=== PATIENT | female | born 1985 | race Caucasian/White ===

== ENCOUNTER → 2016-03-08 | Outpatient (CLI) | payer OTHER ==
--- NOTE | 2016-03-08 11:08 | REP ---
Right hand series: Four views. History: Pain. Findings: Four views right hand demonstrate overall normal mineralization. Bones joints and soft tissues are radiographically unremarkable. No change from comparison study May 12, 2015. Impression: Negative right hand views. Signed by Laci Dia MD 03/08/2016 02:39 P
== END ==
LOC: M WUC 09:57
PROVIDERS: ATTEND Physician Assistant
DX: M25.541 Pain in joints of right hand (principal)

== ENCOUNTER 2016-07-27 17:14 | Emergency (ER) | payer OTHER ==
[~2016-07-27] VITALS: Ht 149.9 cm; Wt 46.7 kg
[2016-07-27 17:14] VITALS: BP 127/83
== END 2016-07-27 17:29 | disposition left against medical advice (07) ==
LOC: M ED 17:14
DX: Z53.29 Procedure and treatment not carried out because of patient's decision for other reasons (principal)

== ENCOUNTER 2016-11-09 21:10 | Emergency (ER) | payer OTHER ==
[~2016-11-09] VITALS: Ht 149.9 cm; Wt 40.9 kg
[2016-11-09 21:24] VITALS: BP 114/62
== END 2016-11-09 22:45 | disposition left against medical advice (07) ==
LOC: M ED 21:10
DX: R10.84 Generalized abdominal pain (principal); Z72.0 Tobacco use

== ENCOUNTER 2016-11-11 09:53 | Emergency (ER) | payer OTHER ==
[~2016-11-11] VITALS: Ht 149.9 cm; Wt 41.9 kg
[2016-11-11] MEDS ORDERED: METH40TA PO (10:06)
[2016-11-11] MEDS ORDERED: ONDANSETRON 4MG/2ML VIAL (J2405) IV ONE (11:15)
[2016-11-11] MEDS ORDERED: NS 1,000 ML IV ONE (11:15)
[2016-11-11] MEDS ORDERED: KETOROLAC 30 MG/ML VIAL (J1885) IV ONE (11:15)
[2016-11-11 11:54] LABS: CALCIUM OXALATE CRYSTALS SMALL
--- NOTE | 2016-11-11 11:54 | REP ---
Acute abdominal series three views including PA chest and supine upright abdomen: There are no comparison studies. PA chest: Lung de leon are clear. Cardiac size is normal. The lilly, mediastinum, and bony thorax unremarkable. There is no free subdiaphragmatic air. Impression: Negative PA chest. Abdomen, supine upright views: There is a large volume of fecal residue throughout the colon. There is small bowel distension with air-fluid levels compatible with ileus versus obstruction. No calcifications or foreign bodies. Impression: Ileus versus obstruction. Large volume of fecal residue throughout the colon Signed by Levar Leyva MD 11/11/2016 11:45 A
[2016-11-11 11:57] LABS: MEAN CORPUSCULAR HEMOGLOBIN 30.6 pg (27.0-33.0); MEAN CORPUSCULAR HGB CONC 35.3 g/dl (32.0-36.5); MEAN CORPUSCULAR VOLUME 86.7 fl (80.0-96.0); PLATELET COUNT, AUTOMATED 271 10^3/uL (150-450); RED CELL DISTRIBUTION WIDTH 13.1 % (11.5-14.5)
[2016-11-11 12:03] LABS: ADD MANUAL DIFFER YES; DIFF SLIDE NUMBER 188
[2016-11-11 12:14] LABS: ALBUMIN 2.6 GM/DL (3.2-5.2); ALBUMIN/GLOBULIN RATIO 0.67 (1.00-1.93); ALKALINE PHOSPHATASE 50 U/L (45-117); ALT/SGPT 21 U/L (12-78); AMYLASE 23 U/L (25-115); ANION GAP 10 MEQ/L (8-16); AST/SGOT 21 U/L (15-37); BILIRUBIN,DIRECT < 0.1 MG/DL (0.0-0.2); BILIRUBIN,TOTAL 0.3 MG/DL (0.2-1.0); BLOOD UREA NITROGEN 60 MG/DL (7-18); CALCIUM LEVEL 8.7 MG/DL (8.5-10.1); CARBON DIOXIDE LEVEL 24 MEQ/L (21-32); CHLORIDE LEVEL 96 MEQ/L (98-107); CREATININE FOR GFR 1.03 MG/DL (0.55-1.02); GLOMERULAR FILTRATION RATE > 60.0 (>60); GLUCOSE, FASTING 110 MG/DL (70-105); POTASSIUM SERUM 4.4 MEQ/L (3.5-5.1); SODIUM LEVEL 130 MEQ/L (136-145); TOTAL PROTEIN 6.5 GM/DL (6.4-8.2)
[2016-11-11 12:39] LABS: BANDS 1 % (< 11)
[2016-11-11 12:40] LABS: ANISOCYTOSIS 1+
[2016-11-11] MEDS ORDERED: ISOVUE-370 76% 100ML VIAL (Q9967) As Ordered ONE (13:06)
--- NOTE | 2016-11-11 13:57 | REP ---
CT ABDOMEN AND PELVIS WITH IV CONTRAST: TECHNIQUE: Axial contrast enhanced images from the lung bases to the pubic symphysis using 100 mL Isovue 370 intravenous contrast material with multiplanar reformations. Visualized lung bases are clear. The liver, spleen, adrenals, pancreas and kidneys are essentially normal in appearance. There is no adenopathy. There is no free air. Intussusception is noted of a jejunal small bowel loop. This causes high grade obstruction of the jejunum. More distal ileum is normal in caliber. Fecal material is seen throughout the colon. There is mild diffuse free fluid in the abdomen and pelvis. The urinary bladder is mildly distended and grossly unremarkable. No gross pelvic mass is seen. IMPRESSION: Intussusception of a segment of jejunum causing high-grade small bowel obstruction. Mild diffuse free fluid in the abdomen and pelvis. Signed by Levar Sanchez MD 11/12/2016 05:13 P
[2016-11-11 15:04] VITALS: BP 142/80
== END 2016-11-11 15:06 | disposition short-term general hospital (02) ==
LOC: M ED 09:53
DX: K56.60 Unspecified intestinal obstruction (principal); F19.21 Other psychoactive substance dependence, in remission; Z98.84 Bariatric surgery status; F17.210 Nicotine dependence, cigarettes, uncomplicated
CPT/HCPCS: 36415; 74022; 74177; 80048; 80076; 81001; 81025; 82150; 83690; 85025; 96374; 96375; 99284; J1885; J2405; Q9967

== ENCOUNTER 2016-11-20 21:00 | Emergency (ER) | payer OTHER ==
[~2016-11-20] VITALS: Ht 149.9 cm; Wt 40.5 kg
[~2016-11-20 21:00] MED LIST: METH40TA PO
[2016-11-20 21:02] VITALS: BP 149/99
== END 2016-11-20 23:00 | disposition left against medical advice (07) ==
LOC: M ED 21:00
DX: R68.89 Other general symptoms and signs (principal); Z53.29 Procedure and treatment not carried out because of patient's decision for other reasons

== ENCOUNTER → 2017-01-04 | Outpatient (CLI) | payer OTHER ==
[2017-01-04 17:54] LABS: MEAN CORPUSCULAR HEMOGLOBIN 24.6 pg (27.0-33.0); MEAN CORPUSCULAR HGB CONC 30.1 g/dl (32.0-36.5); MEAN CORPUSCULAR VOLUME 81.5 fl (80.0-96.0); PLATELET COUNT, AUTOMATED 464 10^3/uL (150-450); RED CELL DISTRIBUTION WIDTH 15.9 % (11.5-14.5); WHITE BLOOD COUNT 9.3 10^3/uL (4.0-10.0)
[2017-01-04 18:06] LABS: ALBUMIN 2.9 GM/DL (3.2-5.2); ALBUMIN/GLOBULIN RATIO 0.76 (1.00-1.93); ALKALINE PHOSPHATASE 63 U/L (45-117); ALT/SGPT 25 U/L (12-78); ANION GAP 7 MEQ/L (8-16); AST/SGOT 14 U/L (7-37); BILIRUBIN,TOTAL 0.1 MG/DL (0.2-1.0); BLOOD UREA NITROGEN 12 MG/DL (7-18); CALCIUM LEVEL 8.6 MG/DL (8.5-10.1); CARBON DIOXIDE LEVEL 28 MEQ/L (21-32); CHLORIDE LEVEL 103 MEQ/L (98-107); CHOLESTEROL LEVEL 115 MG/DL (<200); CREATININE FOR GFR 0.57 MG/DL (0.55-1.02); FERRITIN 10 NG/ML (8-252); GLOMERULAR FILTRATION RATE > 60.0 (>60); GLUCOSE, FASTING 99 MG/DL (70-105); POTASSIUM SERUM 4.2 MEQ/L (3.5-5.1); SODIUM LEVEL 138 MEQ/L (136-145); TOTAL PROTEIN 6.7 GM/DL (6.4-8.2); TRIGLYCERIDES LEVEL 148 MG/DL (<150)
[2017-01-06 14:36] LABS: FOLATE 9.1 NG/ML (>5.4); VITAMIN B12 LEVEL 325 PG/ML (247-911)
== END ==
LOC: M WUC 12:14
DX: E44.0 Moderate protein-calorie malnutrition (principal); K56.1 Intussusception; D53.8 Other specified nutritional anemias; Z53.20 Procedure and treatment not carried out because of patient's decision for unspecified reasons

== ENCOUNTER → 2017-07-08 | Outpatient (CLI) | payer MEDICAID | LOC: M OUTALCOH 07:46 | DX: F11.20 Opioid dependence, uncomplicated (principal) ==

== ENCOUNTER 2017-07-30 13:59 | Outpatient (RCR) | payer MEDICAID | END 2017-08-16 | LOC: M OUTALCOH 13:59 | DX: F11.20 Opioid dependence, uncomplicated (principal); F17.200 Nicotine dependence, unspecified, uncomplicated ==

== ENCOUNTER 2017-11-04 15:13 | Emergency (ER) | payer OTHER, MEDICAID ==
[2017-11-04 17:21] LABS: HEMATOCRIT 33.2 % (36.0-47.0); HEMOGLOBIN 10.3 g/dl (12.0-15.5); MEAN CORPUSCULAR HEMOGLOBIN 24.2 pg (27.0-33.0); MEAN CORPUSCULAR VOLUME 77.9 fl (80.0-96.0); PLATELET COUNT, AUTOMATED 346 10^3/uL (150-450); RED BLOOD COUNT 4.26 10^6/uL (4.00-5.40); WHITE BLOOD COUNT 8.1 10^3/uL (4.0-10.0)
[2017-11-04 17:26] LABS: ADD MANUAL DIFFER YES; DIFF SLIDE NUMBER 357; POSITIVE MORPH POS FLAG
[2017-11-04 17:42] LABS: ALBUMIN 2.6 GM/DL (3.2-5.2); ALKALINE PHOSPHATASE 62 U/L (45-117); ALT/SGPT 25 U/L (12-78); ANION GAP 10 MEQ/L (8-16); AST/SGOT 18 U/L (7-37); BILIRUBIN,DIRECT < 0.1 MG/DL (0.0-0.2); BILIRUBIN,TOTAL 0.2 MG/DL (0.2-1.0); BLOOD UREA NITROGEN 11 MG/DL (7-18); CALCIUM LEVEL 8.6 MG/DL (8.5-10.1); CARBON DIOXIDE LEVEL 21 MEQ/L (21-32); CHLORIDE LEVEL 110 MEQ/L (98-107); CREATININE FOR GFR 0.34 MG/DL (0.55-1.30); GLOMERULAR FILTRATION RATE > 60.0 (>60); GLUCOSE, FASTING 57 MG/DL (70-100); LIPASE 137 U/L (73-393); POTASSIUM SERUM 4.1 MEQ/L (3.5-5.1); SODIUM LEVEL 141 MEQ/L (136-145); TOTAL PROTEIN 6.9 GM/DL (6.4-8.2)
[2017-11-04] MEDS ORDERED: ISOVUE-370 76% 100ML VIAL (Q9967) As Ordered (18:03)
[2017-11-04 18:12] LABS: LYMPHOCYTES 20 % (16-52); MONOCYTES 6 % (0-8); NEUTROPHILS 74 % (35-75)
[2017-11-04 18:13] LABS: PLATELET ESTIMATE NORMAL (NORMAL)
[2017-11-04 18:14] LABS: MICROCYTOSIS 1+; SCHISTOCYTES 1+; TARGET CELLS 1+
== END 2017-11-04 20:59 | disposition home or self-care (01) ==
LOC: M ED 15:13
DX: R10.9 Unspecified abdominal pain (principal); K21.9 Gastro-esophageal reflux disease without esophagitis
CPT/HCPCS: Q9967

== ENCOUNTER → 2017-11-13 | Outpatient (REF) | payer OTHER | LOC: M LAB REF 13:35 | DX: L02.91 Cutaneous abscess, unspecified (principal) ==

== ENCOUNTER → 2018-02-03 | Outpatient (CLI) | payer MEDICAID | LOC: M OUTALCOH 08:46 | PROVIDERS: ATTEND Psychiatry & Neurology Psychiatry | DX: Z13.9 Encounter for screening, unspecified (principal); F11.20 Opioid dependence, uncomplicated ==

== ENCOUNTER 2018-02-13 14:06 | Outpatient (RCR) | payer MEDICAID | END 2018-02-16 | LOC: M OUTALCOH 14:06 | PROVIDERS: ATTEND Psychiatry & Neurology Psychiatry | DX: F11.20 Opioid dependence, uncomplicated (principal); F17.200 Nicotine dependence, unspecified, uncomplicated ==

== ENCOUNTER → 2018-03-06 | Outpatient (REF) | payer OTHER ==
[2018-03-06 09:57] LABS: HEMATOCRIT 36.1 % (36.0-47.0); HEMOGLOBIN 11.7 g/dl (12.0-15.5); MEAN CORPUSCULAR HEMOGLOBIN 27.1 pg (27.0-33.0); MEAN CORPUSCULAR HGB CONC 32.4 g/dl (32.0-36.5); MEAN CORPUSCULAR VOLUME 83.6 fl (80.0-96.0); PLATELET COUNT, AUTOMATED 270 10^3/uL (150-450); RED BLOOD COUNT 4.32 10^6/uL (4.00-5.40); WHITE BLOOD COUNT 7.4 10^3/uL (4.0-10.0)
[2018-03-06 10:04] LABS: CHOLESTEROL LEVEL 125 MG/DL (<200); CHOLESTEROL RISK RATIO 2.906 (<5); HDL CHOLESTEROL 43 MG/DL (>40); LDL CHOLESTEROL 64 MG/DL (<100); NON-HDL-C 82 MG/DL; TRIGLYCERIDES LEVEL 91 MG/DL (<150)
[2018-03-06 10:12] LABS: TOTAL 25(OH) VITAMIN D 20.7 NG/ML (30.0-100.0)
[2018-03-06 10:13] LABS: VITAMIN B12 LEVEL 280 PG/ML (247-911)
[2018-03-06 10:25] LABS: HEPATITIS B SURFACE ANTIGEN NEGATIVE (NEGATIVE)
[2018-03-06 10:51] LABS: HEPATITIS B CORE ANTIBODY IGM NEGATIVE (NEGATIVE)
[2018-03-06 10:54] LABS: HEPATITIS A ANTIBODY IGM NEGATIVE (NEGATIVE)
[2018-03-06 11:05] LABS: HEPATITIS C VIRUS ABY INDEX > 11.0 INDEX (<0.8)
[2018-03-06 12:12] LABS: HIV 1&2 SCREEN CENTAUR NEGATIVE (NEGATIVE)
== END ==
LOC: M SFHCPLAZ 08:01
PROVIDERS: ATTEND Nurse Practitioner Family
DX: Z86.59 Personal history of other mental and behavioral disorders (principal); Z00.00 Encounter for general adult medical examination without abnormal findings; E55.9 Vitamin D deficiency, unspecified; F41.1 Generalized anxiety disorder; Z13.220 Encounter for screening for lipoid disorders

== ENCOUNTER 2018-03-18 08:45 | Outpatient (RCR) | payer MEDICAID | END 2018-03-19 | LOC: M OUTALCOH 08:45 | PROVIDERS: ATTEND Psychiatry & Neurology Psychiatry | DX: F11.20 Opioid dependence, uncomplicated (principal); F17.200 Nicotine dependence, unspecified, uncomplicated ==

== ENCOUNTER 2018-04-14 10:00 | Outpatient (RCR) | payer MEDICAID | END 2018-04-16 | LOC: M OUTALCOH 10:00 | PROVIDERS: ATTEND Psychiatry & Neurology Psychiatry | DX: F11.20 Opioid dependence, uncomplicated (principal); F17.200 Nicotine dependence, unspecified, uncomplicated ==

== ENCOUNTER 2018-05-12 10:00 | Outpatient (RCR) | payer MEDICAID | END 2018-05-17 | LOC: M OUTALCOH 10:00 | PROVIDERS: ATTEND Psychiatry & Neurology Psychiatry | DX: F11.20 Opioid dependence, uncomplicated (principal); F17.200 Nicotine dependence, unspecified, uncomplicated ==

== ENCOUNTER 2018-06-15 16:00 | Outpatient (RCR) | payer MEDICAID | END 2018-06-16 | LOC: M OUTALCOH 16:00 | PROVIDERS: ATTEND Psychiatry & Neurology Psychiatry | DX: F11.20 Opioid dependence, uncomplicated (principal); F17.200 Nicotine dependence, unspecified, uncomplicated ==

== ENCOUNTER → 2019-03-23 | Outpatient (CLI) | payer OTHER ==
[2019-03-23 13:07] LABS: BASO % 0.5 % (0.0-1.0); EOS # 0.1 10^3/uL (0.0-0.5); EOS % 2.2 % (0.0-3.0); HEMATOCRIT 37.4 % (36.0-47.0); HEMOGLOBIN 11.4 g/dl (12.0-15.5); LYMPH # 2.5 10^3/uL (1.5-5.0); MEAN CORPUSCULAR HEMOGLOBIN 26.3 pg (27.0-33.0); MEAN CORPUSCULAR HGB CONC 30.5 g/dl (32.0-36.5); MEAN CORPUSCULAR VOLUME 86.2 fl (80.0-96.0); MONO # 0.6 10^3/uL (0.0-0.8); MONO % 8.7 % (0.0-5.0); NEUTROPHILS # 3.1 10^3/uL (1.5-8.5); NEUTROPHILS % 49.4 % (36.0-66.0); PLATELET COUNT, AUTOMATED 258 10^3/uL (150-450); RED BLOOD COUNT 4.34 10^6/uL (4.00-5.40); WHITE BLOOD COUNT 6.3 10^3/uL (4.0-10.0)
[2019-03-23 13:08] LABS: ALBUMIN 3.9 GM/DL (3.2-5.2); ALT/SGPT 19 U/L (12-78); BILIRUBIN,TOTAL 0.3 MG/DL (0.2-1.0); BLOOD UREA NITROGEN 7 MG/DL (7-18); CARBON DIOXIDE LEVEL 27 MEQ/L (21-32); CHLORIDE LEVEL 107 MEQ/L (98-107); CREATININE FOR GFR 0.56 MG/DL (0.55-1.30); GLOMERULAR FILTRATION RATE > 60.0 (>60); GLUCOSE, FASTING 75 MG/DL (70-100); MAGNESIUM LEVEL 2.1 MG/DL (1.8-2.4); POTASSIUM SERUM 4.3 MEQ/L (3.5-5.1); SODIUM LEVEL 139 MEQ/L (136-145)
[2019-03-23 13:16] LABS: FOLATE > 24.0 NG/ML; VITAMIN B12 LEVEL 572 PG/ML
[2019-03-24 12:56] LABS: HEPATITIS C VIRUS ABY INDEX > 11.0 INDEX (<0.8)
== END ==
LOC: M WUC 08:40
PROVIDERS: ATTEND Physician Assistant
DX: Z86.19 Personal history of other infectious and parasitic diseases (principal); E55.9 Vitamin D deficiency, unspecified; Z98.84 Bariatric surgery status

== ENCOUNTER → 2020-04-06 | Outpatient (REF) | payer OTHER | LOC: M SFHCPLAZ 09:24 | PROVIDERS: ATTEND Physician Assistant | DX: E55.9 Vitamin D deficiency, unspecified (principal); E53.8 Deficiency of other specified B group vitamins; Z98.84 Bariatric surgery status ==

== ENCOUNTER → 2020-04-12 | Outpatient (CLI) | payer OTHER ==
[2020-04-12 13:27] LABS: HEMOGLOBIN 10.2 g/dl (12.0-15.5); MEAN CORPUSCULAR HEMOGLOBIN 24.2 pg (27.0-33.0); MEAN CORPUSCULAR HGB CONC 30.9 g/dl (32.0-36.5); MEAN CORPUSCULAR VOLUME 78.4 fl (80.0-96.0); PLATELET COUNT, AUTOMATED 236 10^3/uL (150-450); RED BLOOD COUNT 4.21 10^6/uL (4.00-5.40); WHITE BLOOD COUNT 5.4 10^3/uL (4.0-10.0)
[2020-04-12 13:42] LABS: ALBUMIN 3.4 GM/DL (3.2-5.2); ALT/SGPT 19 U/L (12-78); BILIRUBIN,TOTAL 0.2 MG/DL (0.2-1.0); BLOOD UREA NITROGEN 7 MG/DL (7-18); CALCIUM LEVEL 8.7 MG/DL (8.5-10.1); CARBON DIOXIDE LEVEL 25 MEQ/L (21-32); CHLORIDE LEVEL 105 MEQ/L (98-107); CREATININE FOR GFR 0.54 MG/DL (0.55-1.30); GLOMERULAR FILTRATION RATE > 60.0 (>60); GLUCOSE, FASTING 104 MG/DL (70-100); IRON (FE) 50 UG/DL (50-170); POTASSIUM SERUM 4.3 MEQ/L (3.5-5.1); SODIUM LEVEL 137 MEQ/L (136-145); TOTAL PROTEIN 6.8 GM/DL (6.4-8.2)
[2020-04-12 13:50] LABS: TOTAL 25(OH) VITAMIN D 16.6 NG/ML (30.0-100.0); VITAMIN B12 LEVEL 282 PG/ML
[2020-04-12 14:13] LABS: FOLATE 17.5 NG/ML
== END ==
LOC: M LAB 11:43
PROVIDERS: ATTEND Physician Assistant
DX: Z98.84 Bariatric surgery status (principal); E55.9 Vitamin D deficiency, unspecified; E53.8 Deficiency of other specified B group vitamins

== ENCOUNTER → 2020-10-09 | Outpatient (CLI) | payer OTHER ==
[2020-10-09 15:26] LABS: HEMATOCRIT 35.7 % (36.0-47.0); HEMOGLOBIN 11.5 g/dl (12.0-15.5); MEAN CORPUSCULAR HEMOGLOBIN 25.9 pg (27.0-33.0); MEAN CORPUSCULAR HGB CONC 32.2 g/dl (32.0-36.5); MEAN CORPUSCULAR VOLUME 80.4 fl (80.0-96.0); PLATELET COUNT, AUTOMATED 295 10^3/uL (150-450); RED BLOOD COUNT 4.44 10^6/uL (4.00-5.40); WHITE BLOOD COUNT 4.7 10^3/uL (4.0-10.0)
[2020-10-09 15:57] LABS: BLOOD UREA NITROGEN 4 MG/DL (7-18); CARBON DIOXIDE LEVEL 25 MEQ/L (21-32); CHLORIDE LEVEL 107 MEQ/L (98-107); CREATININE FOR GFR 0.56 MG/DL (0.55-1.30); GLOMERULAR FILTRATION RATE > 60.0 (>60); GLUCOSE, FASTING 63 MG/DL (70-100); IRON (FE) 51 UG/DL (50-170); POTASSIUM SERUM 4.7 MEQ/L (3.5-5.1); SODIUM LEVEL 136 MEQ/L (136-145)
[2020-10-09 16:08] LABS: TOTAL 25(OH) VITAMIN D 20.4 NG/ML (30.0-100.0); VITAMIN B12 LEVEL > 2000 PG/ML
[2020-10-09 16:10] LABS: FOLATE 15.2 NG/ML
== END ==
LOC: M LAB 14:06
PROVIDERS: ATTEND Physician Assistant
DX: E55.9 Vitamin D deficiency, unspecified (principal); D50.8 Other iron deficiency anemias; E53.8 Deficiency of other specified B group vitamins

== ENCOUNTER → 2021-02-13 | Outpatient (REF) | payer OTHER | LOC: M LAB REF 16:16 | PROVIDERS: ATTEND Obstetrics & Gynecology | DX: O36.80X0 Pregnancy with inconclusive fetal viability, not applicable or unspecified (principal); Z32.01 Encounter for pregnancy test, result positive; Z3A.00 Weeks of gestation of pregnancy not specified ==

== ENCOUNTER → 2021-02-19 | Outpatient (CLI) | payer OTHER ==
[2021-02-19 14:10] LABS: HEMATOCRIT 38.9 % (36.0-47.0); MEAN CORPUSCULAR HEMOGLOBIN 30.7 pg (27.0-33.0); MEAN CORPUSCULAR HGB CONC 33.4 g/dl (32.0-36.5); PLATELET COUNT, AUTOMATED 249 10^3/uL (150-450); RED BLOOD COUNT 4.23 10^6/uL (4.00-5.40); WHITE BLOOD COUNT 7.3 10^3/uL (4.0-10.0)
[2021-02-19 15:32] LABS: HCG, SERUM QUANTITATIVE 37805 MIU/ML; HEPATITIS B SURFACE ANTIGEN NEGATIVE (NEGATIVE); HEPATITIS C VIRUS ABY INDEX > 11.0 INDEX (<0.8); HIV 1&2 SCREEN CENTAUR NEGATIVE (NEGATIVE)
== END ==
LOC: M LAB 12:30
PROVIDERS: ATTEND Obstetrics & Gynecology
DX: Z32.01 Encounter for pregnancy test, result positive (principal); Z3A.00 Weeks of gestation of pregnancy not specified

== ENCOUNTER → 2021-05-17 | Outpatient (CLI) | payer OTHER | LOC: M WHC 14:12 | PROVIDERS: ATTEND Obstetrics & Gynecology | DX: O34.211 Maternal care for low transverse scar from previous cesarean delivery (principal); O32.1XX0 Maternal care for breech presentation, not applicable or unspecified; Z3A.19 19 weeks gestation of pregnancy ==

== ENCOUNTER → 2021-07-04 | Outpatient (CLI) | payer OTHER | LOC: M WHC 13:14 | PROVIDERS: ATTEND Obstetrics & Gynecology | DX: Z36.2 Encounter for other antenatal screening follow-up (principal); Z3A.25 25 weeks gestation of pregnancy ==

== ENCOUNTER → 2021-08-10 | Outpatient (CLI) | payer OTHER | LOC: M WHC 13:45 | PROVIDERS: ATTEND Specialist | DX: Z34.82 Encounter for supervision of other normal pregnancy, second trimester (principal); Z36.2 Encounter for other antenatal screening follow-up; Z3A.29 29 weeks gestation of pregnancy ==

== ENCOUNTER 2021-09-02 07:34 | Inpatient (IN) | payer OTHER ==
[2021-09-02] VITALS (21 sets, daily range): BP systolic 122–170; BP diastolic 71–101
[~2021-09-02] VITALS: Ht 149.9 cm; Wt 47.4 kg
[2021-09-02] MEDS ORDERED: AZITHROMYCIN INJ 500 MG, VIAL MATE ADAPTER 1 EACH in NS 250 ML IV ONE (09:15)
[2021-09-02] MEDS ORDERED: OXYTOCIN DRIP 30 UNITS in IV 1 EA IV PRN ×4 (09:15)
[2021-09-02] MEDS ORDERED: ceFAZolin SOD 2 GM in IV 1 EA IV ONE (09:15)
[2021-09-02] MEDS ORDERED: BICITRA 30ML SOLN UDC PO ONE ×2 (09:15→13:35)
[2021-09-02] MEDS ORDERED: TRANEXAMIC ACID INJection 1,000 MG in NS 100 ML IV PRN (09:15)
[2021-09-02] MEDS ORDERED: METHYLERGONOVINE MALEATE 0.2 MG/ML VIAL (J2210) IM PRN (09:15)
[2021-09-02] MEDS ORDERED: CARBOPROST TROMETHAMINE 250 MCG/ML AMP IM PRN (09:15)
[2021-09-02 12:37] LABS: HEMATOCRIT 32.8 % (36.0-47.0); MEAN CORPUSCULAR HEMOGLOBIN 30.1 pg (27.0-33.0); MEAN CORPUSCULAR HGB CONC 33.5 g/dl (32.0-36.5); MEAN CORPUSCULAR VOLUME 89.9 fl (80.0-96.0); PLATELET COUNT, AUTOMATED 249 10^3/uL (150-450); RED BLOOD COUNT 3.65 10^6/uL (4.00-5.40); WHITE BLOOD COUNT 14.5 10^3/uL (4.0-10.0)
[2021-09-02] MEDS ORDERED: LR 1,000 ML IV ONE (12:40)
[2021-09-02] MEDS ORDERED: OXYTOCIN INJ 10 UNITS/ML VIAL (J2590) As Ordered ONE (12:41)
[2021-09-02] MEDS ORDERED: MORPHINE PRES-FREE INJ 10 MG/10 ML VIAL As Ordered ONE (12:45)
[2021-09-02] MEDS ORDERED: SODIUM CHLORIDE 0.9% INJ 10 ML SYR IV PRN ×2 (13:00→17:40)
[2021-09-02 13:02] LABS: ALBUMIN 2.4 GM/DL (3.2-5.2); ALT/SGPT 23 U/L (12-78); BILIRUBIN,TOTAL 0.3 MG/DL (0.2-1.0); BLOOD UREA NITROGEN 10 MG/DL (7-18); CALCIUM LEVEL 8.3 MG/DL (8.5-10.1); CARBON DIOXIDE LEVEL 22 MEQ/L (21-32); CHLORIDE LEVEL 105 MEQ/L (98-107); CREATININE FOR GFR 0.45 MG/DL (0.55-1.30); GLOMERULAR FILTRATION RATE > 60.0 (>60); GLUCOSE, FASTING 84 MG/DL (70-100); POTASSIUM SERUM 3.8 MEQ/L (3.5-5.1); SODIUM LEVEL 137 MEQ/L (136-145); TOTAL PROTEIN 6.1 GM/DL (6.4-8.2)
[2021-09-02] MEDS ORDERED: LIDOCAINE PRES-FREE 2% 10ML AMP As Ordered ONE (13:37)
[2021-09-02] MEDS ORDERED: SODIUM CHLORIDE 0.9% INJ 10 ML SYR IV SCH ×2 (14:00)
[2021-09-02] MEDS ORDERED: dexameTHASONE 4 MG/ML 1ML VIAL (J1100 PER 1MG) As Ordered ONE (14:14)
[2021-09-02] MEDS ORDERED: ePHEDrine SULFATE 25 MG/5 ML(5MG/ML) SYRINGE As Ordered ONE (14:14)
[2021-09-02] MEDS ORDERED: ONDANSETRON 4MG 2ML VIAL As Ordered ONE (14:14)
[2021-09-02] MEDS ORDERED: METOCLOPRAMIDE INJ 10MG/2ML VIAL (J2765 PER 1) As Ordered ONE (14:16)
[2021-09-02 14:27] LABS: CORD GAS ABE V -3.2; CORD GAS HCO3 V 20.5 MEQ/L; CORD GAS O2 SAT V 99.8 %; CORD GAS PCO2 V 33.8 mmHg; CORD GAS PH V 7.401 UNITS; CORD GAS PO2 V 116.5 mmHg; CORD GAS SBC V 21.9 MEQ/L; CORD GAS TCO2 V 21.6 MEQ/L
[2021-09-02 14:29] LABS: CORD GAS ABE A -0.8; CORD GAS HCO3 A 26.9 MEQ/L; CORD GAS O2 SAT A 42.2 %; CORD GAS PCO2 A 56.4 mmHg; CORD GAS PH A 7.296 UNITS; CORD GAS PO2 A 17.9 mmHg; CORD GAS SBC A 22.4 MEQ/L; CORD GAS TCO2 A 28.6 MEQ/L
[2021-09-02] MEDS ORDERED: KETOROLAC 60MG 2ML VIAL As Ordered ONE (14:34)
[2021-09-02] MEDS ORDERED: FENTANYL 2MCG/ML ROPIVACAINE 0.2% IN 0.9% NACL 100ML IVBAG As Ordered ONE (14:41)
[2021-09-02] MEDS: SLF 3 ML SYR IV SCH ×2 (15:25→21:15)
[2021-09-02] MEDS ORDERED: NALOXONE INJ 0.4MG/1ML VIAL (J2310 PER 1MG) IV PRN ×3 (15:25→16:00)
[2021-09-02] MEDS ORDERED: **NOTE PATIENT COMMENT** MISC XX SCH (15:25)
[2021-09-02] MEDS ORDERED: EPIDURAL/PCA KEYS XX PRN ×2 (15:25→16:00)
[2021-09-02] MEDS ORDERED: ONDANSETRON 4MG 2ML VIAL IV PRN ×5 (15:25→16:00)
[2021-09-02] MEDS ORDERED: OXYTOCIN DRIP 30 UNITS in IV 1 EA IV SCH (15:25)
[2021-09-02] MEDS ORDERED: METOCLOPRAMIDE INJ 10MG/2ML VIAL (J2765 PER 1) IV PRN ×2 (15:25)
[2021-09-02] MEDS ORDERED: FENTANYL/BUPIVACAINE/NACL BAG 250 ML EPIDURAL SCH (15:25)
[2021-09-02] MEDS ORDERED: LR 1,000 ML IV SCH (15:25)
[2021-09-02] MEDS ORDERED: diphenhydrAMINE 50MG/ML VIAL (J1200) IV PRN ×3 (15:25→16:00)
[2021-09-02] MEDS ORDERED: SIMETHICONE 80MG CHEW TAB PO PRN (15:25)
[2021-09-02] MEDS ORDERED: oxyCODONE 5MG TAB PO PRN ×2 (15:25)
[2021-09-02] MEDS ORDERED: NALBUPHINE HCL 10 MG/ML AMP (J2300) IV PRN (15:25)
[2021-09-02] MEDS ORDERED: RHOGAM 300 MCG (1500 IU) INJ (J2790) IM SCH (15:25)
[2021-09-02] MEDS ORDERED: NIFEdipine 30 MG XL TAB PO STA (15:53)
[2021-09-02] MEDS ORDERED: EPIDURAL COMMENT XX SCH (16:00)
[2021-09-02] MEDS ORDERED: FENTANYL/ROPIVACAINE/NACL BAG 100 ML EPIDURAL SCH (16:00)
[2021-09-02] MEDS ORDERED: REFRIGERATOR IV KEYS XX PRN (16:00)
[2021-09-02] MEDS ORDERED: ePHEDrine SULFATE 25 MG/5 ML(5MG/ML) SYRINGE IV PRN (16:00)
[2021-09-02] MEDS ORDERED: LACTATED RINGER'S 1000 ML IV PRN (16:00)
[2021-09-02] MEDS ORDERED: LABETALOL 100MG/20ML VIAL IV STA (16:11)
[2021-09-02] MEDS ORDERED: OXYTOCIN 30 UNITS IN 0.9% NaCl 500ML IV BAG (J2590) As Ordered ONE (16:18)
[2021-09-02] MEDS ORDERED: LABETALOL 100MG/20ML VIAL As Ordered ONE (16:18)
[2021-09-02] MEDS: ACETAMINOPHEN 500 MG TAB PO SCH ×2 (17:00→22:20)
[2021-09-02] MEDS: KETOROLAC 30 MG/ML 1ML VIAL IV SCH (18:37)
[2021-09-02] MEDS: LR 1,000 ML IV SCH (20:37)
[2021-09-02] MEDS: SODIUM CHLORIDE 0.9% INJ 10 ML SYR IV SCH (21:09)
[2021-09-02 22:32] LABS: HEMATOCRIT 26.2 % (36.0-47.0); MEAN CORPUSCULAR HEMOGLOBIN 30.9 pg (27.0-33.0); MEAN CORPUSCULAR HGB CONC 33.6 g/dl (32.0-36.5); MEAN CORPUSCULAR VOLUME 91.9 fl (80.0-96.0); PLATELET COUNT, AUTOMATED 198 10^3/uL (150-450); RED BLOOD COUNT 2.85 10^6/uL (4.00-5.40); WHITE BLOOD COUNT 12.7 10^3/uL (4.0-10.0)
[2021-09-02 22:41] LABS: HEMOGLOBIN 8.8 g/dl (12.0-15.5)
[2021-09-02 23:07] LABS: ALBUMIN 1.8 GM/DL (3.2-5.2); ALT/SGPT 17 U/L (12-78); BILIRUBIN,TOTAL 0.1 MG/DL (0.2-1.0); BLOOD UREA NITROGEN 6 MG/DL (7-18); CALCIUM LEVEL 7.8 MG/DL (8.5-10.1); CARBON DIOXIDE LEVEL 20 MEQ/L (21-32); CHLORIDE LEVEL 108 MEQ/L (98-107); CREATININE FOR GFR 0.73 MG/DL (0.55-1.30); GLOMERULAR FILTRATION RATE > 60.0 (>60); GLUCOSE, FASTING 243 MG/DL (70-100); POTASSIUM SERUM 3.9 MEQ/L (3.5-5.1); SODIUM LEVEL 139 MEQ/L (136-145); TOTAL PROTEIN 4.8 GM/DL (6.4-8.2)
[2021-09-03] VITALS (7 sets, daily range): BP systolic 138–178; BP diastolic 78–94
[2021-09-03] MEDS: KETOROLAC 30 MG/ML 1ML VIAL IV SCH ×2 (00:01→06:06)
[2021-09-03] MEDS: LR 1,000 ML IV SCH ×2 (05:01→11:15)
[2021-09-03] MEDS: ACETAMINOPHEN 500 MG TAB PO SCH ×4 (05:01→22:06)
[2021-09-03] MEDS: SLF 3 ML SYR IV SCH (05:26)
[2021-09-03] MEDS: METHADONE 10MG TAB PO SCH (06:06)
[2021-09-03 06:22] LABS: HEMATOCRIT 24.5 % (36.0-47.0); HEMOGLOBIN 8.4 g/dl (12.0-15.5); MEAN CORPUSCULAR HEMOGLOBIN 31.3 pg (27.0-33.0); MEAN CORPUSCULAR HGB CONC 34.3 g/dl (32.0-36.5); MEAN CORPUSCULAR VOLUME 91.4 fl (80.0-96.0); PLATELET COUNT, AUTOMATED 206 10^3/uL (150-450); RED BLOOD COUNT 2.68 10^6/uL (4.00-5.40); WHITE BLOOD COUNT 12.6 10^3/uL (4.0-10.0)
[2021-09-03] MEDS: SODIUM CHLORIDE 0.9% INJ 10 ML SYR IV SCH ×3 (06:31→22:10)
[2021-09-03 06:52] LABS: ALBUMIN 1.8 GM/DL (3.2-5.2); ALT/SGPT 15 U/L (12-78); BILIRUBIN,TOTAL 0.1 MG/DL (0.2-1.0); BLOOD UREA NITROGEN 6 MG/DL (7-18); CALCIUM LEVEL 8.5 MG/DL (8.5-10.1); CARBON DIOXIDE LEVEL 27 MEQ/L (21-32); CHLORIDE LEVEL 108 MEQ/L (98-107); CREATININE FOR GFR 0.36 MG/DL (0.55-1.30); GLOMERULAR FILTRATION RATE > 60.0 (>60); GLUCOSE, FASTING 69 MG/DL (70-100); POTASSIUM SERUM 4.4 MEQ/L (3.5-5.1); SODIUM LEVEL 141 MEQ/L (136-145); TOTAL PROTEIN 4.7 GM/DL (6.4-8.2)
[2021-09-03] MEDS: PRENATAL VITAMINS CHEWABLE TABLET PO SCH (09:00)
[2021-09-03] MEDS ORDERED: GLYCCAP PO (09:29)
[2021-09-03] MEDS ORDERED: PRENTAB53 PO (09:29)
[2021-09-03] MEDS ORDERED: IRON27TA2 PO (09:29)
[2021-09-03] MEDS ORDERED: VITAD400CA PO (09:29)
[2021-09-03] MEDS ORDERED: PROBCAP2 PO (09:29)
[2021-09-03] MEDS ORDERED: METH10CO PO (09:29)
[2021-09-03] MEDS: NIFEdipine 30 MG XL TAB PO SCH (14:36)
[2021-09-03] MEDS: IBUPROFEN 600MG TAB PO SCH ×2 (15:54→20:54)
[2021-09-04 02:00] VITALS: BP 156/88
[2021-09-04] MEDS: IBUPROFEN 600MG TAB PO SCH ×3 (03:02→15:06)
[2021-09-04] MEDS: SODIUM CHLORIDE 0.9% INJ 10 ML SYR IV SCH ×2 (05:43→14:00)
[2021-09-04] MEDS: ACETAMINOPHEN 500 MG TAB PO SCH ×2 (05:43→11:18)
[2021-09-04 06:00] VITALS: BP 134/82
[2021-09-04] MEDS: METHADONE 10MG TAB PO SCH (06:42)
[2021-09-04] MEDS: PRENATAL VITAMINS CHEWABLE TABLET PO SCH (08:54)
[2021-09-04] MEDS ORDERED: BOOSTRIX/ADACEL VACCINE (DIPHTH/PERTUSS/ACELL/TETANUS) 0.5ML SYR IM.IMMUN ONE (09:00)
[2021-09-04] MEDS ORDERED: MEASLES,MUMPS,RUBELLA VACCINE INJ (MMR-II) (90707) SC.IMMUN ONE (09:00)
[2021-09-04 10:00] VITALS: BP 154/85
[2021-09-04 14:00] VITALS: BP 140/87
[2021-09-04] MEDS ORDERED: ACET-683 PO (14:33)
[2021-09-04] MEDS ORDERED: NEOSPORIN OINT 0.9 GM PKT TOP ONE (15:00)
[2021-09-04 15:11] VITALS: BP 159/94
[2021-09-04] MEDS: NIFEdipine 30 MG XL TAB PO SCH (15:11)
[2021-09-04] MEDS ORDERED: NIFE1TAB52 PO (15:47)
== END 2021-09-04 16:10 | disposition home or self-care (01) | DRG 540 ==
LOC: M LDO 07:34 → M LDI 09:02 → M OBS 09-03 09:10
PROVIDERS: ADMIT Obstetrics & Gynecology; ATTEND Obstetrics & Gynecology
PROC: 05HM33Z Insertion of Infusion Device into Right Internal Jugular Vein, Percutaneous Approach (ICD-10-PCS; 2021-09-02)
PROC: 10D00Z1 Extraction of Products of Conception, Low, Open Approach (ICD-10-PCS; principal; 2021-09-02 13:52)
DX: O42.013 Preterm premature rupture of membranes, onset of labor within 24 hours of rupture, third trimester (principal); O34.211 Maternal care for low transverse scar from previous cesarean delivery; O99.844 Bariatric surgery status complicating childbirth; Z3A.34 34 weeks gestation of pregnancy; Z37.0 Single live birth; O99.334 Smoking (tobacco) complicating childbirth; F17.210 Nicotine dependence, cigarettes, uncomplicated; Z79.899 Other long term (current) drug therapy

== ENCOUNTER 2021-12-29 07:57 | Inpatient (IN) | payer OTHER ==
[~2021-12-29] VITALS: Ht 149.9 cm; Wt 35.4 kg
[2021-12-29] VITALS (7 sets, daily range): BP systolic 124–152; BP diastolic 73–93
[~2021-12-29 07:57] MED LIST changes: +ACET-683 PO; +BACI1CAP4 PO; +GLYCCAP PO; +IRON27TA2 PO; +KEPP1TAB PO; +METH10CO PO; +NIFE1TAB52 PO; +NIFE30TA50 PO; +PRENTAB53 PO; +PROBCAP2 PO; +VITA100093 PO; +VITAD400CA PO
[2021-12-29 09:28] LABS: BASO % 0.2 % (0.0-1.0); EOS # 0.1 10^3/uL (0.0-0.5); EOS % 0.5 % (0.0-3.0); HEMATOCRIT 34.1 % (36.0-47.0); HEMOGLOBIN 10.5 g/dl (12.0-15.5); LYMPH # 1.2 10^3/uL (1.5-5.0); LYMPH % 10.4 % (24.0-44.0); MEAN CORPUSCULAR HGB CONC 30.8 g/dl (32.0-36.5); MONO # 0.6 10^3/uL (0.0-0.8); MONO % 5.1 % (2.0-8.0); NEUTROPHILS # 9.2 10^3/uL (1.5-8.5); NEUTROPHILS % 83.4 % (36.0-66.0); PLATELET COUNT, AUTOMATED 403 10^3/uL (150-450); RED BLOOD COUNT 4.37 10^6/uL (4.00-5.40); WHITE BLOOD COUNT 11.1 10^3/uL (4.0-10.0)
[2021-12-29 10:00] LABS: HCG, SERUM QUALITATIVE NEGATIVE (NEGATIVE)
[2021-12-29 10:11] LABS: ALBUMIN 3.2 GM/DL (3.2-5.2); ALT/SGPT 30 U/L (12-78); BILIRUBIN,DIRECT < 0.1 MG/DL (0.0-0.2); BILIRUBIN,TOTAL 0.2 MG/DL (0.2-1.0); BLOOD UREA NITROGEN 16 MG/DL (7-18); CALCIUM LEVEL 8.9 MG/DL (8.5-10.1); CARBON DIOXIDE LEVEL 26 MEQ/L (21-32); CHLORIDE LEVEL 103 MEQ/L (98-107); CREATININE FOR GFR 0.39 MG/DL (0.55-1.30); GLOMERULAR FILTRATION RATE > 60.0 (>60); GLUCOSE, FASTING 151 MG/DL (70-100); LIPASE 71 U/L (73-393); POTASSIUM SERUM 3.8 MEQ/L (3.5-5.1); SODIUM LEVEL 139 MEQ/L (136-145); TOTAL PROTEIN 6.9 GM/DL (6.4-8.2)
[2021-12-29] MEDS ORDERED: KETOROLAC 30 MG/ML 1ML VIAL IV ONE (10:20)
[2021-12-29] MEDS ORDERED: NALOXONE INJ 0.4MG/1ML VIAL (J2310 PER 1MG) IV STA ×2 (10:20→10:52)
[2021-12-29] MEDS ORDERED: NS 1,000 ML IV ONE (10:20)
[2021-12-29] MEDS ORDERED: NALOXONE INJ 0.4MG/1ML VIAL (J2310 PER 1MG) IM STA (10:33)
[2021-12-29] MEDS ORDERED: ISOVUE-370 76% 100ML VIAL As Ordered ONE (10:39)
[2021-12-29 11:36] LABS: AMPHETAMINES LEVEL URINE NEGATIVE (NEGATIVE); BARBITURATES URINE NEGATIVE (NEGATIVE); BENZODIAZEPINES URINE NEGATIVE (NEGATIVE); CANNABINOIDS URINE NEGATIVE (NEGATIVE); COCAINE METABOLITE URINE NEGATIVE (NEGATIVE); METHADONE URINE POSITIVE (NEGATIVE); OPIATES URINE NEGATIVE (NEGATIVE); PHENCYCLIDINE URINE NEGATIVE (NEGATIVE)
[2021-12-29 11:39] LABS: CK-MB VALUE MASS 6.7 NG/ML (<3.6); MB/CK RELATIVE INDEX 2.77 (< OR =4)
[2021-12-29 11:45] LABS: RSV AMPLIFICATION NEGATIVE (NEGATIVE)
[2021-12-29] MEDS ORDERED: PIPERACILLIN/TAZOBACTAM SOD 4.5 GM in D5W MINI-BAG PLUS 50 ML IV ONE (14:05)
[2021-12-29] MEDS ORDERED: LIDOCAINE 2% 100MG/5ML SDV (FOR ANES.) As Ordered ONE (14:42)
[2021-12-29] MEDS ORDERED: ROCURONIUM BROMIDE 50 MG/5 ML VIAL As Ordered ONE (14:42)
[2021-12-29] MEDS ORDERED: propofoL 200 MG/20 ML VIAL As Ordered ONE (14:42)
[2021-12-29] MEDS ORDERED: fentaNYL 100 MCG/2 ML INJECTION As Ordered ONE (14:43)
[2021-12-29] MEDS ORDERED: MIDAZOLAM INJ 2MG/2ML VIAL (J2250 PER 1MG) As Ordered ONE (14:44)
[2021-12-29] MEDS ORDERED: dexameTHASONE 4 MG/ML 1ML VIAL (J1100 PER 1MG) As Ordered ONE (15:44)
[2021-12-29] MEDS ORDERED: BUPIVACAINE HCL 0.25% 10ML VIAL As Ordered ONE (16:19)
[2021-12-29] MEDS ORDERED: BUPIVACAINE LIPOSOME/PF 1.3% 20ML VIAL (13.3MG/ML)(EXPAREL) As Ordered ONE (16:19)
[2021-12-29] MEDS ORDERED: ONDANSETRON 4MG 2ML VIAL As Ordered ONE (16:21)
[2021-12-29] MEDS ORDERED: SUGAMMADEX SODIUM 500 MG/5 ML VIAL (BRIDION) As Ordered ONE (16:21)
[2021-12-29] MEDS ORDERED: ACETAMINOPHEN 1000MG 100ML IV BAG As Ordered ONE (16:22)
[2021-12-29] MEDS ORDERED: HYDROMORPHONE HCL 0.5 MG/ 0.5 ML SYRINGE (J1170 PER 1) IV PRN (17:15)
[2021-12-29] MEDS ORDERED: LR 1,000 ML IV SCH (17:15)
[2021-12-29] MEDS ORDERED: METOCLOPRAMIDE INJ 10MG/2ML VIAL (J2765 PER 1) IV PRN (17:15)
[2021-12-29] MEDS ORDERED: ONDANSETRON 4MG 2ML VIAL IV PRN (17:15)
[2021-12-29] MEDS ORDERED: fentaNYL 100 MCG/2 ML INJECTION IV PRN (17:15)
[2021-12-29] MEDS ORDERED: LABETALOL 100MG/20ML VIAL As Ordered ONE (17:34)
[2021-12-29] MEDS: LABETALOL 100MG/20ML VIAL IV PRN ×4 (17:37→17:56)
[2021-12-29] MEDS ORDERED: LORazepam 2 MG/ML VIAL IV PRN (17:50)
[2021-12-29] MEDS: hydrALAZINE 20MG/ML 1ML VIAL (J0360 PER 20MG) IV PRN ×3 (18:04→18:18)
[2021-12-29] MEDS ORDERED: hydrALAZINE 20MG/ML 1ML VIAL (J0360 PER 20MG) IV PRN (19:00)
[2021-12-29] MEDS ORDERED: MORPHINE 10 MG/ML 1ML VIAL IV PRN (19:00)
[2021-12-29] MEDS: KETOROLAC 30 MG/ML 1ML VIAL IV SCH (19:22)
[2021-12-29] MEDS: PIPERACILLIN/TAZOBACTAM SOD 3.375 GM in D5W MINI-BAG PLUS 50 ML IV SCH (20:56)
[2021-12-30] VITALS (7 sets, daily range): BP systolic 158–166; BP diastolic 87–100
[2021-12-30] MEDS: KETOROLAC 30 MG/ML 1ML VIAL IV SCH ×4 (00:46→18:29)
[2021-12-30] MEDS: PIPERACILLIN/TAZOBACTAM SOD 3.375 GM in D5W MINI-BAG PLUS 50 ML IV SCH ×3 (02:50→13:56)
[2021-12-30] MEDS: MORPHINE 2 MG/ML 1ML VIAL IV PRN ×3 (02:51→21:54)
[2021-12-30 06:58] LABS: BASO % 0.1 % (0.0-1.0); HEMATOCRIT 28.4 % (36.0-47.0); HEMOGLOBIN 8.9 g/dl (12.0-15.5); LYMPH # 0.7 10^3/uL (1.5-5.0); LYMPH % 5.9 % (24.0-44.0); MEAN CORPUSCULAR HEMOGLOBIN 24.3 pg (27.0-33.0); MEAN CORPUSCULAR HGB CONC 31.3 g/dl (32.0-36.5); MEAN CORPUSCULAR VOLUME 77.4 fl (80.0-96.0); MONO # 0.9 10^3/uL (0.0-0.8); MONO % 7.7 % (2.0-8.0); NEUTROPHILS # 10.1 10^3/uL (1.5-8.5); PLATELET COUNT, AUTOMATED 352 10^3/uL (150-450); RED BLOOD COUNT 3.67 10^6/uL (4.00-5.40); WHITE BLOOD COUNT 11.8 10^3/uL (4.0-10.0)
[2021-12-30 07:49] LABS: ALBUMIN 2.5 GM/DL (3.2-5.2); ALT/SGPT 24 U/L (12-78); BILIRUBIN,TOTAL 0.3 MG/DL (0.2-1.0); BLOOD UREA NITROGEN 17 MG/DL (7-18); CALCIUM LEVEL 8.7 MG/DL (8.5-10.1); CARBON DIOXIDE LEVEL 26 MEQ/L (21-32); CHLORIDE LEVEL 105 MEQ/L (98-107); GLOMERULAR FILTRATION RATE > 60.0 (>60); GLUCOSE, FASTING 132 MG/DL (70-100); MAGNESIUM LEVEL 1.8 MG/DL (1.8-2.4); POTASSIUM SERUM 3.6 MEQ/L (3.5-5.1); SODIUM LEVEL 137 MEQ/L (136-145); TOTAL PROTEIN 5.4 GM/DL (6.4-8.2)
[2021-12-30] MEDS ORDERED: METHADONE 10MG TAB PO SCH (09:00)
[2021-12-30] MEDS: D5W/0.9% SODIUM CHLORIDE 1,000 ML IV SCH (09:47)
[2021-12-30] MEDS ORDERED: MORPHINE 2 MG/ML 1ML VIAL IV ONE (10:20)
[2021-12-30] MEDS ORDERED: PROHANCE 279.3MG/ML 15ML VIAL As Ordered ONE (11:16)
[2021-12-30] MEDS ORDERED: amLODIPine 5 MG TAB PO SCH (12:25)
[2021-12-30 13:21] LABS: HEMATOCRIT 26.8 % (36.0-47.0); HEMOGLOBIN 8.3 g/dl (12.0-15.5)
[2021-12-30] MEDS ORDERED: HOME MED LIST COMPLETE! XX SCH (15:30)
[2021-12-30] MEDS: HEPARIN SOD (PORCINE) 5000UNITS/ML 1ML VIAL/SYRINGE SC SCH (20:46)
[2021-12-31] VITALS: BP 178/102
[2021-12-31] MEDS: KETOROLAC 30 MG/ML 1ML VIAL IV SCH ×4 (00:09→18:12)
[2021-12-31 00:44] VITALS: BP 161/90
[2021-12-31] MEDS: MORPHINE 2 MG/ML 1ML VIAL IV PRN ×3 (01:33→20:36)
[2021-12-31 04:00] VITALS: BP 168/99
[2021-12-31 08:00] VITALS: BP 151/85
[2021-12-31 08:19] LABS: HEMOGLOBIN 8.3 g/dl (12.0-15.5); LYMPH % 13.1 % (24.0-44.0); MEAN CORPUSCULAR HEMOGLOBIN 23.6 pg (27.0-33.0); MEAN CORPUSCULAR HGB CONC 30.7 g/dl (32.0-36.5); MEAN CORPUSCULAR VOLUME 76.7 fl (80.0-96.0); MONO # 0.4 10^3/uL (0.0-0.8); MONO % 5.7 % (2.0-8.0); NEUTROPHILS # 6.1 10^3/uL (1.5-8.5); NEUTROPHILS % 80.9 % (36.0-66.0); PLATELET COUNT, AUTOMATED 312 10^3/uL (150-450); RED BLOOD COUNT 3.52 10^6/uL (4.00-5.40); WHITE BLOOD COUNT 7.5 10^3/uL (4.0-10.0)
[2021-12-31 08:50] LABS: ALBUMIN 2.3 GM/DL (3.2-5.2); ALT/SGPT 21 U/L (12-78); BILIRUBIN,TOTAL 0.1 MG/DL (0.2-1.0); BLOOD UREA NITROGEN 7 MG/DL (7-18); CALCIUM LEVEL 8.8 MG/DL (8.5-10.1); CARBON DIOXIDE LEVEL 28 MEQ/L (21-32); CHLORIDE LEVEL 105 MEQ/L (98-107); CREATININE FOR GFR 0.33 MG/DL (0.55-1.30); GLOMERULAR FILTRATION RATE > 60.0 (>60); GLUCOSE, FASTING 85 MG/DL (70-100); POTASSIUM SERUM 3.3 MEQ/L (3.5-5.1); SODIUM LEVEL 137 MEQ/L (136-145); TOTAL PROTEIN 5.6 GM/DL (6.4-8.2)
[2021-12-31] MEDS ORDERED: METHADONE 10MG TAB PO SCH (09:00)
[2021-12-31] MEDS ORDERED: KCL 10MEQ/100ML SWI (KRUN) 10 MEQ in IV 1 EA IV ONE (10:00)
[2021-12-31] MEDS: D5W/0.9% SODIUM CHLORIDE 1,000 ML IV SCH (10:15)
[2021-12-31] MEDS: HEPARIN SOD (PORCINE) 5000UNITS/ML 1ML VIAL/SYRINGE SC SCH ×2 (10:16→20:34)
[2021-12-31] MEDS: amLODIPine 5 MG TAB PO SCH (10:27)
[2021-12-31] MEDS ORDERED: LIDOCAINE 1% MDV 20ML VIAL As Ordered ONE (15:12)
[2021-12-31 16:00] VITALS: BP 132/60
[2021-12-31] MEDS ORDERED: SODIUM CHLORIDE 0.9% INJ 10 ML SYR IV PRN (17:45)
[2021-12-31] MEDS: SODIUM CHLORIDE 0.9% INJ 10 ML SYR IV SCH (18:12)
[2021-12-31 20:00] VITALS: BP_SYST 122; BP_DIAS 69; BP_DIAS 70
[2022-01-01] VITALS: BP 157/88
[2022-01-01] MEDS: KETOROLAC 30 MG/ML 1ML VIAL IV SCH ×3 (00:24→13:37)
[2022-01-01 04:00] VITALS: BP 165/89
[2022-01-01] MEDS: MORPHINE 2 MG/ML 1ML VIAL IV PRN ×2 (05:37→18:36)
[2022-01-01] MEDS: D5W/0.9% SODIUM CHLORIDE 1,000 ML IV SCH (05:37)
[2022-01-01] MEDS: SODIUM CHLORIDE 0.9% INJ 10 ML SYR IV SCH ×2 (05:39→18:16)
[2022-01-01 05:47] LABS: BASO % 0.2 % (0.0-1.0); EOS % 0.8 % (0.0-3.0); HEMATOCRIT 25.4 % (36.0-47.0); HEMOGLOBIN 7.6 g/dl (12.0-15.5); LYMPH # 1.2 10^3/uL (1.5-5.0); LYMPH % 23.9 % (24.0-44.0); MEAN CORPUSCULAR HEMOGLOBIN 23.5 pg (27.0-33.0); MEAN CORPUSCULAR HGB CONC 29.9 g/dl (32.0-36.5); MEAN CORPUSCULAR VOLUME 78.4 fl (80.0-96.0); MONO # 0.3 10^3/uL (0.0-0.8); MONO % 5.9 % (2.0-8.0); NEUTROPHILS # 3.4 10^3/uL (1.5-8.5); NEUTROPHILS % 68.6 % (36.0-66.0); PLATELET COUNT, AUTOMATED 337 10^3/uL (150-450); RED BLOOD COUNT 3.24 10^6/uL (4.00-5.40); WHITE BLOOD COUNT 4.9 10^3/uL (4.0-10.0)
[2022-01-01 06:25] LABS: ALBUMIN 2.2 GM/DL (3.2-5.2); ALT/SGPT 17 U/L (12-78); BILIRUBIN,TOTAL 0.1 MG/DL (0.2-1.0); BLOOD UREA NITROGEN 6 MG/DL (7-18); CALCIUM LEVEL 8.7 MG/DL (8.5-10.1); CARBON DIOXIDE LEVEL 28 MEQ/L (21-32); CHLORIDE LEVEL 105 MEQ/L (98-107); CREATININE FOR GFR 0.51 MG/DL (0.55-1.30); GLOMERULAR FILTRATION RATE > 60.0 (>60); GLUCOSE, FASTING 103 MG/DL (70-100); POTASSIUM SERUM 3.3 MEQ/L (3.5-5.1); SODIUM LEVEL 137 MEQ/L (136-145); TOTAL PROTEIN 6.1 GM/DL (6.4-8.2)
[2022-01-01 08:00] VITALS: BP 141/93
[2022-01-01] MEDS ORDERED: POTASSIUM CHLORIDE 10MEQ SR TABLET PO ONE (08:00)
[2022-01-01] MEDS: HEPARIN SOD (PORCINE) 5000UNITS/ML 1ML VIAL/SYRINGE SC SCH ×2 (08:56→21:00)
[2022-01-01] MEDS: METHADONE 10MG TAB PO SCH (09:22)
[2022-01-01] MEDS: amLODIPine 5 MG TAB PO SCH (09:23)
[2022-01-01 16:00] VITALS: BP 130/81
[2022-01-01 20:00] VITALS: BP 150/90
[2022-01-02] VITALS: BP_SYST 11; BP_SYST 131; BP_DIAS 83
[2022-01-02] MEDS: MORPHINE 2 MG/ML 1ML VIAL IV PRN ×4 (00:06→14:10)
[2022-01-02] MEDS: D5W/0.9% SODIUM CHLORIDE 1,000 ML IV SCH (01:44)
[2022-01-02 04:00] VITALS: BP 161/83
[2022-01-02] MEDS: SODIUM CHLORIDE 0.9% INJ 10 ML SYR IV SCH ×2 (06:15→18:34)
[2022-01-02 08:00] VITALS: BP 156/82
[2022-01-02] MEDS: HEPARIN SOD (PORCINE) 5000UNITS/ML 1ML VIAL/SYRINGE SC SCH ×2 (08:29→20:31)
[2022-01-02] MEDS: amLODIPine 5 MG TAB PO SCH (08:49)
[2022-01-02] MEDS: METHADONE 10MG TAB PO SCH (08:50)
[2022-01-02] MEDS ORDERED: MIRALAX *UNIT DOSE* 17GM PACKET PO ONE ×2 (09:30→15:25)
[2022-01-02 12:00] VITALS: BP 152/90
[2022-01-02] MEDS ORDERED: MIRALAX *UNIT DOSE* 17GM PACKET PO PRN (14:55)
[2022-01-02 16:00] VITALS: BP 150/82
[2022-01-02 16:11] LABS: BASO % 0.3 % (0.0-1.0); EOS # 0.2 10^3/uL (0.0-0.5); EOS % 3.8 % (0.0-3.0); HEMATOCRIT 31.5 % (36.0-47.0); HEMOGLOBIN 9.3 g/dl (12.0-15.5); LYMPH # 1.6 10^3/uL (1.5-5.0); LYMPH % 27.1 % (24.0-44.0); MEAN CORPUSCULAR HEMOGLOBIN 23.2 pg (27.0-33.0); MEAN CORPUSCULAR HGB CONC 29.5 g/dl (32.0-36.5); MEAN CORPUSCULAR VOLUME 78.6 fl (80.0-96.0); MONO # 0.5 10^3/uL (0.0-0.8); NEUTROPHILS # 3.6 10^3/uL (1.5-8.5); NEUTROPHILS % 60.5 % (36.0-66.0); PLATELET COUNT, AUTOMATED 385 10^3/uL (150-450); RED BLOOD COUNT 4.01 10^6/uL (4.00-5.40)
[2022-01-02] MEDS ORDERED: PERCOCET 5MG/325MG TAB PO PRN (16:30)
[2022-01-02 17:11] LABS: ALBUMIN 2.6 G/DL (3.2-5.2); ALT/SGPT 17 U/L (7.0-40); BILIRUBIN,TOTAL < 0.2 MG/DL (0.3-1.2); BLOOD UREA NITROGEN 10 MG/DL (9-23); CARBON DIOXIDE LEVEL 29 MMOL/L (20-31); CHLORIDE LEVEL 99 MMOL/L (98-107); CREATININE FOR GFR 0.38 MG/DL (0.55-1.30); GLOMERULAR FILTRATION RATE > 60.0 (>60); GLUCOSE, FASTING 72 MG/DL (60-100); MAGNESIUM LEVEL 1.8 MG/DL (1.8-2.4); POTASSIUM SERUM 4.7 MMOL/L (3.5-5.1); SODIUM LEVEL 136 MMOL/L (136-145); TOTAL PROTEIN 6.2 G/DL (5.7-8.2)
[2022-01-02 17:26] LABS: FERRITIN 31.4 NG/ML (7.3-270.7); PERCENT SATURATION 4.6 % (13.2-45.0)
[2022-01-02] MEDS: PERCOCET 5MG/325MG TAB PO PRN (19:20)
[2022-01-02 20:00] VITALS: BP 161/107
[2022-01-02] MEDS: SENNA 8.6 MG TAB (SENOKOT) PO SCH (20:31)
[2022-01-02] MEDS: DOCUSATE SODIUM 100MG CAPSULE PO SCH (20:31)
[2022-01-03] VITALS (9 sets, daily range): BP systolic 98–152; BP diastolic 58–97
[2022-01-03] MEDS: PERCOCET 5MG/325MG TAB PO PRN ×4 (01:31→18:54)
[2022-01-03] MEDS: SODIUM CHLORIDE 0.9% INJ 10 ML SYR IV SCH ×2 (06:58→18:06)
[2022-01-03 06:59] LABS: BASO % 0.4 % (0.0-1.0); EOS # 0.1 10^3/uL (0.0-0.5); EOS % 2.6 % (0.0-3.0); HEMATOCRIT 32.7 % (36.0-47.0); HEMOGLOBIN 9.7 g/dl (12.0-15.5); LYMPH # 1.5 10^3/uL (1.5-5.0); LYMPH % 28.6 % (24.0-44.0); MEAN CORPUSCULAR HEMOGLOBIN 23.4 pg (27.0-33.0); MEAN CORPUSCULAR HGB CONC 29.7 g/dl (32.0-36.5); MEAN CORPUSCULAR VOLUME 78.8 fl (80.0-96.0); MONO # 0.5 10^3/uL (0.0-0.8); MONO % 8.7 % (2.0-8.0); NEUTROPHILS # 3.2 10^3/uL (1.5-8.5); NEUTROPHILS % 59.3 % (36.0-66.0); PLATELET COUNT, AUTOMATED 414 10^3/uL (150-450); RED BLOOD COUNT 4.15 10^6/uL (4.00-5.40); WHITE BLOOD COUNT 5.4 10^3/uL (4.0-10.0)
[2022-01-03 07:49] LABS: ALBUMIN 2.7 G/DL (3.2-5.2); ALT/SGPT 16 U/L (7.0-40); BILIRUBIN,TOTAL < 0.2 MG/DL (0.3-1.2); BLOOD UREA NITROGEN 12 MG/DL (9-23); CALCIUM LEVEL 8.9 MG/DL (8.5-10.1); CARBON DIOXIDE LEVEL 27 MMOL/L (20-31); CHLORIDE LEVEL 97 MMOL/L (98-107); CREATININE FOR GFR 0.41 MG/DL (0.55-1.30); GLOMERULAR FILTRATION RATE > 60.0 (>60); GLUCOSE, FASTING 93 MG/DL (60-100); MAGNESIUM LEVEL 1.8 MG/DL (1.8-2.4); POTASSIUM SERUM 4.7 MMOL/L (3.5-5.1); SODIUM LEVEL 136 MMOL/L (136-145); TOTAL PROTEIN 6.3 G/DL (5.7-8.2)
[2022-01-03] MEDS: HEPARIN SOD (PORCINE) 5000UNITS/ML 1ML VIAL/SYRINGE SC SCH ×2 (08:58→19:57)
[2022-01-03] MEDS: METHADONE 10MG TAB PO SCH (08:58)
[2022-01-03] MEDS: DOCUSATE SODIUM 100MG CAPSULE PO SCH ×2 (08:58→19:58)
[2022-01-03] MEDS: amLODIPine 5 MG TAB PO SCH (09:02)
[2022-01-03] MEDS: SENNA 8.6 MG TAB (SENOKOT) PO SCH (19:58)
[2022-01-04] MEDS: PERCOCET 5MG/325MG TAB PO PRN ×2 (02:14→08:25)
[2022-01-04 05:20] VITALS: BP 134/93
[2022-01-04 05:41] LABS: BASO % 0.2 % (0.0-1.0); EOS # 0.2 10^3/uL (0.0-0.5); HEMATOCRIT 32.5 % (36.0-47.0); HEMOGLOBIN 9.9 g/dl (12.0-15.5); LYMPH # 1.2 10^3/uL (1.5-5.0); LYMPH % 23.5 % (24.0-44.0); MEAN CORPUSCULAR HEMOGLOBIN 23.6 pg (27.0-33.0); MEAN CORPUSCULAR HGB CONC 30.5 g/dl (32.0-36.5); MEAN CORPUSCULAR VOLUME 77.6 fl (80.0-96.0); MONO # 0.4 10^3/uL (0.0-0.8); NEUTROPHILS # 3.3 10^3/uL (1.5-8.5); NEUTROPHILS % 64.9 % (36.0-66.0); PLATELET COUNT, AUTOMATED 404 10^3/uL (150-450); RED BLOOD COUNT 4.19 10^6/uL (4.00-5.40)
[2022-01-04] MEDS: SODIUM CHLORIDE 0.9% INJ 10 ML SYR IV SCH (05:42)
[2022-01-04 06:47] LABS: ALBUMIN 2.8 G/DL (3.2-5.2); ALT/SGPT 13 U/L (7.0-40); BILIRUBIN,TOTAL < 0.2 MG/DL (0.3-1.2); BLOOD UREA NITROGEN 14 MG/DL (9-23); CALCIUM LEVEL 9.8 MG/DL (8.5-10.1); CARBON DIOXIDE LEVEL 28 MMOL/L (20-31); CHLORIDE LEVEL 99 MMOL/L (98-107); CREATININE FOR GFR 0.46 MG/DL (0.55-1.30); GLOMERULAR FILTRATION RATE > 60.0 (>60); GLUCOSE, FASTING 76 MG/DL (60-100); MAGNESIUM LEVEL 1.8 MG/DL (1.8-2.4); POTASSIUM SERUM 4.9 MMOL/L (3.5-5.1); SODIUM LEVEL 136 MMOL/L (136-145); TOTAL PROTEIN 6.1 G/DL (5.7-8.2)
[2022-01-04] MEDS: METHADONE 10MG TAB PO SCH (08:16)
[2022-01-04] MEDS: HEPARIN SOD (PORCINE) 5000UNITS/ML 1ML VIAL/SYRINGE SC SCH (08:16)
[2022-01-04] MEDS: DOCUSATE SODIUM 100MG CAPSULE PO SCH (08:16)
[2022-01-04 08:18] VITALS: BP 133/93
[2022-01-04] MEDS: amLODIPine 5 MG TAB PO SCH (08:18)
[2022-01-04] MEDS ORDERED: MIRA1POW3 PO (09:23)
[2022-01-04] MEDS ORDERED: PERCOCET PO (09:23)
[2022-01-04] MEDS ORDERED: COLA100C5 PO (09:23)
[2022-01-04] MEDS ORDERED: METH10CO PO (09:23)
[2022-01-04] MEDS ORDERED: SENN18TA PO (09:23)
[2022-01-04] MEDS ORDERED: AMLO1TAB24 PO (09:23)
[2022-01-04] MEDS ORDERED: FERR325T3 PO (13:27)
== END 2022-01-04 11:17 | disposition home or self-care (01) | DRG 221 ==
LOC: M ED 07:57 → M ED INP 15:12 → M PCU 18:39 → M MSPAV 01-03 18:43
PROVIDERS: ADMIT Surgery; ATTEND Internal Medicine
PROC: 0DB80ZZ Excision of Small Intestine, Open Approach (ICD-10-PCS; principal; 2021-12-29 14:06)
PROC: 05H Upper Veins, Insertion (ICD-10-PCS; 2022-01-02)
DX: K56.1 Intussusception (principal); R56.9 Unspecified convulsions; E46 Unspecified protein-calorie malnutrition; I10 Essential (primary) hypertension; D50.9 Iron deficiency anemia, unspecified; F17.200 Nicotine dependence, unspecified, uncomplicated; E87.6 Hypokalemia; F19.10 Other psychoactive substance abuse, uncomplicated; Q43.0 Meckel's diverticulum (displaced) (hypertrophic); R53.83 Other fatigue; Z68.1 Body mass index [BMI] 19.9 or less, adult; Z79.891 Long term (current) use of opiate analgesic; Z79.899 Other long term (current) drug therapy; K56.609 Unspecified intestinal obstruction, unspecified as to partial versus complete obstruction

== ENCOUNTER 2023-03-03 10:09 | Inpatient (IN) | payer OTHER ==
[2023-03-03] VITALS (13 sets, daily range): BP systolic 101–129; BP diastolic 56–83; TEMP 97.5–99.1; O2SAT 97–100
[~2023-03-03] VITALS: Ht 149.9 cm; Wt 41.8 kg
[~2023-03-03 10:09] MED LIST changes: +AMLO1TAB24 PO; +COLA100C5 PO; +FERR325T3 PO; +MIRA1POW3 PO; +NIFE-3 PO; -NIFE30TA50 PO; +PERCOCET PO; +SENN-111 PO
[2023-03-03] MEDS ORDERED: METH10CO3 PO (10:16)
[2023-03-03] MEDS ORDERED: MED REC IN PROGRESS XX SCH (11:00)
[2023-03-03 12:27] LABS: VENOUS BASE EXCESS -4.6 (-2.0-2.0); VENOUS HCO3 19.8 MMOL/L (23.0-27.0); VENOUS PARTIAL PRESSURE CO2 35.1 mmHg (38.0-50.0); VENOUS STANDARD HCO3 20.6 MMOL/L; VENOUS TOTAL CO2 20.9 MMOL/L (24.0-28.0)
[2023-03-03 12:41] LABS: EOS # 0.1 10^3/uL (0.0-0.5); EOS % 1.4 % (0.0-3.0); LYMPH # 1.1 10^3/uL (1.5-5.0); LYMPH % 21.2 % (24.0-44.0); MEAN CORPUSCULAR HEMOGLOBIN 13.8 pg (27.0-33.0); MEAN CORPUSCULAR HGB CONC 23.5 g/dl (32.0-36.5); MEAN CORPUSCULAR VOLUME 58.6 fl (80.0-96.0); MONO # 0.4 10^3/uL (0.0-0.8); MONO % 8.9 % (2.0-8.0); NEUTROPHILS # 3.4 10^3/uL (1.5-8.5); NEUTROPHILS % 67.9 % (36.0-66.0); PLATELET COUNT, AUTOMATED 143 10^3/uL (150-450); RED BLOOD COUNT 1.16 10^6/uL (4.00-5.40)
[2023-03-03 12:52] LABS: HEMOGLOBIN 1.6 g/dl (12.0-15.5)
[2023-03-03 12:55] LABS: HEMATOCRIT 6.8 % (36.0-47.0)
[2023-03-03 12:59] LABS: ETHYL ALCOHOL (ETHANOL) < 0.003 % (0.000-0.010)
[2023-03-03 13:01] LABS: CPK CREATINE PHOSPHOKINASE 24 U/L (34-145); SALICYLATE LEVEL < 3.0 MG/DL (<30)
[2023-03-03 13:02] LABS: ALBUMIN 2.4 G/DL (3.2-5.2); ALKALINE PHOSPHATASE 56 U/L (46-116); ALT/SGPT 29 U/L (7.0-40); AST/SGOT 29 U/L (<34); BILIRUBIN,DIRECT 0.2 MG/DL (<0.4); BILIRUBIN,TOTAL 0.3 MG/DL (0.3-1.2); BLOOD UREA NITROGEN 11 MG/DL (9-23); CALCIUM LEVEL 7.6 MG/DL (8.5-10.1); CARBON DIOXIDE LEVEL 21 MMOL/L (20-31); CHLORIDE LEVEL 106 MMOL/L (98-107); CREATININE FOR GFR 0.37 MG/DL (0.55-1.30); GLOMERULAR FILTRATION RATE > 60.0 (>60); GLUCOSE, FASTING 79 MG/DL (60-100); MAGNESIUM LEVEL 2.1 MG/DL (1.8-2.4); POTASSIUM SERUM 4.1 MMOL/L (3.5-5.1); SODIUM LEVEL 138 MMOL/L (136-145); TOTAL PROTEIN 5.9 G/DL (5.7-8.2)
[2023-03-03 13:03] LABS: FOLATE 15.83 NG/ML (>5.4); THYROID STIMULATING HORMONE 2.398 uIU/ML (0.55-4.78); VITAMIN B12 LEVEL 551 PG/ML (211-911)
[2023-03-03] MEDS ORDERED: NS 1,120 ML in IV 1 EA IV ONE (13:05)
[2023-03-03] MEDS ORDERED: cefTRIAXone SOD 2 GM in D5W MINI-BAG PLUS 50 ML IV ONE (13:05)
[2023-03-03 13:11] LABS: OSMOLALITY SERUM 297 MOSM/KG (275-295)
[2023-03-03 13:12] LABS: HCG, SERUM QUALITATIVE NEGATIVE (NEGATIVE)
[2023-03-03 13:34] LABS: AMPHETAMINES LEVEL URINE NEGATIVE (NEGATIVE); BARBITURATES URINE NEGATIVE (NEGATIVE); BENZODIAZEPINES URINE NEGATIVE (NEGATIVE); COCAINE METABOLITE URINE NEGATIVE (NEGATIVE); OPIATES URINE NEGATIVE (NEGATIVE); PHENCYCLIDINE URINE NEGATIVE (NEGATIVE)
[2023-03-03 13:35] LABS: CANNABINOIDS URINE NEGATIVE (NEGATIVE)
[2023-03-03 13:36] LABS: METHADONE URINE POSITIVE (NEGATIVE)
[2023-03-03 13:43] LABS: HYPOCHROMASIA 3+
[2023-03-03 13:44] LABS: PLATELET ESTIMATE DECREASED (NORMAL)
[2023-03-03 13:50] LABS: ROULEAUX 1+
[2023-03-03 14:01] LABS: MAGNESIUM LEVEL 2.2 MG/DL (1.8-2.4)
[2023-03-03 14:02] LABS: HEMATOCRIT 7.3 % (36.0-47.0); HEMOGLOBIN 1.6 g/dl (12.0-15.5)
[2023-03-03 14:16] LABS: PERCENT SATURATION 2.6 % (13.2-45.0)
[2023-03-03 14:18] LABS: FERRITIN 2.5 NG/ML (7.3-270.7)
[2023-03-03 14:19] LABS: FOLATE 16.76 NG/ML (>5.4)
[2023-03-03] MEDS ORDERED: FUROSEMIDE 20MG/2ML VIAL IV ONE ×2 (15:30→19:35)
[2023-03-03] MEDS ORDERED: ALBU8.5H INH (16:25)
[2023-03-03] MEDS ORDERED: ACETAMINOPHEN TAB 650MG DOSE (2X325MG) PO PRN (18:15)
[2023-03-03] MEDS ORDERED: ALBUTEROL 90 MCG/ACT 8GM HFA INHALER INH PRN (18:15)
[2023-03-03] MEDS ORDERED: CALCIUM GLUCONATE 1,000 MG in D5W MINI-BAG PLUS 100 ML IV ONE (18:30)
[2023-03-03 20:28] LABS: MEAN CORPUSCULAR HEMOGLOBIN 22.3 pg (27.0-33.0); MEAN CORPUSCULAR HGB CONC 29.9 g/dl (32.0-36.5); MEAN CORPUSCULAR VOLUME 74.5 fl (80.0-96.0); PLATELET COUNT, AUTOMATED 126 10^3/uL (150-450); WHITE BLOOD COUNT 5.4 10^3/uL (4.0-10.0)
[2023-03-03 20:46] LABS: HEMOGLOBIN 4.9 g/dl (12.0-15.5)
[2023-03-03 20:47] LABS: HEMATOCRIT 16.4 % (36.0-47.0)
[2023-03-04] VITALS (12 sets, daily range): BP systolic 120–134; BP diastolic 68–90; TEMP 96.7–99.7; O2SAT 96–100
[2023-03-04 03:37] LABS: APPEARANCE, URINE CLEAR (CLEAR); BACTERIA, URINE AUTO NEGATIVE (NEGATIVE); BILIRUBIN, URINE AUTO NEGATIVE (NEGATIVE); BLOOD, URINE BLOOD NEGATIVE (NEGATIVE); COLOR, URINE YELLOW (YELLOW); GLUCOSE, URINE (UA) AUTO NEGATIVE (NEGATIVE); KETONE, URINE AUTO NEGATIVE (NEGATIVE); LEUKOCYTE ESTERASE, URINE AUTO NEGATIVE (NEGATIVE); MUCUS, URINE SMALL (NEGATIVE); NITRITE, URINE AUTO NEGATIVE (NEGATIVE); PROTEIN, URINE AUTO NEGATIVE (NEGATIVE); RBC, URINE AUTO 0 /HPF (0-3); SPECIFIC GRAVITY URINE AUTO 1.014 (1.002-1.035); SQUAMOUS EPITHELIAL CELL UR AU 0 /HPF (0-6); WBC, URINE AUTO 0 /HPF (0-3)
[2023-03-04 04:35] LABS: BLOOD UREA NITROGEN 11 MG/DL (9-23); CALCIUM LEVEL 7.5 MG/DL (8.5-10.1); CARBON DIOXIDE LEVEL 25 MMOL/L (20-31); CHLORIDE LEVEL 109 MMOL/L (98-107); CREATININE FOR GFR 0.32 MG/DL (0.55-1.30); GLOMERULAR FILTRATION RATE > 60.0 (>60); GLUCOSE, FASTING 73 MG/DL (60-100); POTASSIUM SERUM 4.1 MMOL/L (3.5-5.1); SODIUM LEVEL 137 MMOL/L (136-145)
[2023-03-04 04:41] LABS: BASO % 0.2 % (0.0-1.0); EOS # 0.1 10^3/uL (0.0-0.5); EOS % 1.2 % (0.0-3.0); HEMATOCRIT 23.4 % (36.0-47.0); HEMOGLOBIN 7.8 g/dl (12.0-15.5); LYMPH # 0.9 10^3/uL (1.5-5.0); LYMPH % 14.2 % (24.0-44.0); MEAN CORPUSCULAR HEMOGLOBIN 23.9 pg (27.0-33.0); MEAN CORPUSCULAR HGB CONC 33.3 g/dl (32.0-36.5); MEAN CORPUSCULAR VOLUME 71.6 fl (80.0-96.0); MONO # 0.3 10^3/uL (0.0-0.8); MONO % 5.3 % (2.0-8.0); NEUTROPHILS # 5.1 10^3/uL (1.5-8.5); NEUTROPHILS % 78.5 % (36.0-66.0); PLATELET COUNT, AUTOMATED 141 10^3/uL (150-450); RED BLOOD COUNT 3.27 10^6/uL (4.00-5.40); WHITE BLOOD COUNT 6.5 10^3/uL (4.0-10.0)
[2023-03-04 08:03] LABS: HEMATOCRIT 24.1 % (36.0-47.0); HEMOGLOBIN 7.8 g/dl (12.0-15.5)
[2023-03-04] MEDS ORDERED: CALCIUM GLUCONATE 1,000 MG in D5W MINI-BAG PLUS 100 ML IV ONE (08:30)
[2023-03-04] MEDS ORDERED: HOME MED LIST COMPLETE! XX SCH (11:00)
[2023-03-04] MEDS: METHADONE 10MG TAB PO SCH (11:04)
[2023-03-04] MEDS ORDERED: IRON SUCROSE 500 MG in NS 250 ML IV ONE (13:00)
[2023-03-04 13:55] LABS: HEMATOCRIT 24.5 % (36.0-47.0); HEMOGLOBIN 7.9 g/dl (12.0-15.5)
[2023-03-04] MEDS ORDERED: FUROSEMIDE 20MG/2ML VIAL IV ONE (18:15)
[2023-03-04] MEDS: DOCUSATE SODIUM 100MG CAPSULE PO SCH (20:12)
[2023-03-04 21:20] LABS: HEMATOCRIT 31.9 % (36.0-47.0)
[2023-03-04 21:22] LABS: HEMOGLOBIN 10.3 g/dl (12.0-15.5)
[2023-03-05 04:24] VITALS: BP 106/61; TEMP 96.8; O2SAT 97
[2023-03-05 08:03] VITALS: BP 106/64; TEMP 96; O2SAT 98
[2023-03-05] MEDS: DOCUSATE SODIUM 100MG CAPSULE PO SCH ×2 (09:23→10:30)
[2023-03-05] MEDS: METHADONE 10MG TAB PO SCH (09:23)
[2023-03-05] MEDS ORDERED: FERR324T21 PO (10:26)
[2023-03-05] MEDS ORDERED: COLA100C5 PO (10:26)
[2023-03-05 10:27] LABS: BASO % 0.4 % (0.0-1.0); EOS # 0.1 10^3/uL (0.0-0.5); EOS % 1.9 % (0.0-3.0); HEMATOCRIT 26.2 % (36.0-47.0); LYMPH # 0.9 10^3/uL (1.5-5.0); LYMPH % 12.9 % (24.0-44.0); MEAN CORPUSCULAR HEMOGLOBIN 23.4 pg (27.0-33.0); MEAN CORPUSCULAR HGB CONC 31.7 g/dl (32.0-36.5); MONO # 0.7 10^3/uL (0.0-0.8); MONO % 10.2 % (2.0-8.0); NEUTROPHILS % 74.2 % (36.0-66.0); PLATELET COUNT, AUTOMATED 145 10^3/uL (150-450); RED BLOOD COUNT 3.54 10^6/uL (4.00-5.40); WHITE BLOOD COUNT 6.7 10^3/uL (4.0-10.0)
[2023-03-05 10:33] LABS: BLOOD UREA NITROGEN 8 MG/DL (9-23); CALCIUM LEVEL 7.4 MG/DL (8.5-10.1); CARBON DIOXIDE LEVEL 25 MMOL/L (20-31); CHLORIDE LEVEL 108 MMOL/L (98-107); CREATININE FOR GFR 0.34 MG/DL (0.55-1.30); GLOMERULAR FILTRATION RATE > 60.0 (>60); GLUCOSE, FASTING 84 MG/DL (60-100); POTASSIUM SERUM 3.2 MMOL/L (3.5-5.1); SODIUM LEVEL 138 MMOL/L (136-145)
[2023-03-05 10:35] LABS: HEMOGLOBIN 8.3 g/dl (12.0-15.5)
[2023-03-05] MEDS ORDERED: INFLUENZA QUADRIVALENT PF VACCINE 0.5ML SYRINGE IM.IMMUN ONE (12:00)
[2023-03-05] MEDS ORDERED: POTA10CA60 PO (12:08)
== END 2023-03-05 11:42 | disposition home or self-care (01) | DRG 663 ==
LOC: M ED 10:09 → M ED INP 13:56 → ENRESERV 16:01 → M PCU 17:15
PROVIDERS: ADMIT Internal Medicine Nephrology; ATTEND Internal Medicine Nephrology
PROC: 30233N1 Transfusion of Nonautologous Red Blood Cells into Peripheral Vein, Percutaneous Approach (ICD-10-PCS; principal; 2023-03-03)
DX: D50.9 Iron deficiency anemia, unspecified (principal); E43 Unspecified severe protein-calorie malnutrition; E83.51 Hypocalcemia; E53.8 Deficiency of other specified B group vitamins; I10 Essential (primary) hypertension; F32.A Depression, unspecified; F41.9 Anxiety disorder, unspecified; F17.210 Nicotine dependence, cigarettes, uncomplicated; Z68.1 Body mass index [BMI] 19.9 or less, adult; K59.00 Constipation, unspecified; E87.6 Hypokalemia; K80.20 Calculus of gallbladder without cholecystitis without obstruction; Z79.891 Long term (current) use of opiate analgesic; Z79.899 Other long term (current) drug therapy; Z20.822 Contact with and (suspected) exposure to COVID-19; Z98.84 Bariatric surgery status

== ENCOUNTER → 2023-07-07 | Outpatient (CLI) | payer OTHER ==
[~2023-07-07] MED LIST changes: +ALBU8.5H INH; +FERR324T21 PO; +METH10CO3 PO; -MIRA1POW3 PO; +MIRA33506 PO; +POTA10CA70 PO
[2023-07-07 15:53] LABS: BASO % 0.5 % (0.0-1.0); EOS # 0.8 10^3/uL (0.0-0.5); EOS % 13.6 % (0.0-3.0); HEMATOCRIT 39.3 % (36.0-47.0); HEMOGLOBIN 12.8 g/dl (12.0-15.5); LYMPH # 1.6 10^3/uL (1.5-5.0); MEAN CORPUSCULAR HEMOGLOBIN 31.1 pg (27.0-33.0); MEAN CORPUSCULAR HGB CONC 32.6 g/dl (32.0-36.5); MEAN CORPUSCULAR VOLUME 95.4 fl (80.0-96.0); MONO # 0.5 10^3/uL (0.0-0.8); MONO % 8.3 % (2.0-8.0); NEUTROPHILS % 50.4 % (36.0-66.0); PLATELET COUNT, AUTOMATED 260 10^3/uL (150-450); RED BLOOD COUNT 4.12 10^6/uL (4.00-5.40); WHITE BLOOD COUNT 5.9 10^3/uL (4.0-10.0)
[2023-07-07 16:15] LABS: HEMOGLOBIN A1c 4.5 % (4.0-6.0)
[2023-07-07 16:27] LABS: FERRITIN 30.6 NG/ML (7.3-270.7); THYROID STIMULATING HORMONE 2.617 uIU/ML (0.55-4.78)
[2023-07-07 16:28] LABS: TOTAL 25(OH) VITAMIN D 6.5 NG/ML (20.0-100.0)
[2023-07-07 16:29] LABS: IRON (FE) 53 UG/DL (50-170)
[2023-07-07 16:30] LABS: PERCENT SATURATION 13.5 % (13.2-45.0); TOTAL IRON BINDING CAPACITY 392 UG/DL (250-425)
[2023-07-07 16:31] LABS: ALBUMIN 3.6 G/DL (3.2-5.2); ALKALINE PHOSPHATASE 87 U/L (46-116); ALT/SGPT 18 U/L (7.0-40); AST/SGOT 17 U/L (<34); BILIRUBIN,TOTAL < 0.2 MG/DL (0.3-1.2); BLOOD UREA NITROGEN 11 MG/DL (9-23); CALCIUM LEVEL 9.2 MG/DL (8.5-10.1); CARBON DIOXIDE LEVEL 26 MMOL/L (20-31); CHLORIDE LEVEL 109 MMOL/L (98-107); CHOLESTEROL LEVEL 152 MG/DL (<200); CHOLESTEROL RISK RATIO 3.73 (<5); CREATININE FOR GFR 0.54 MG/DL (0.55-1.30); GLOMERULAR FILTRATION RATE > 60.0 (>60); GLUCOSE, FASTING 61 MG/DL (60-100); HDL CHOLESTEROL 40.7 MG/DL (>40); LDL CHOLESTEROL 77.1 MG/DL (<100); MAGNESIUM LEVEL 1.8 MG/DL (1.8-2.4); NON-HDL-C 111.3 MG/DL; POTASSIUM SERUM 4.2 MMOL/L (3.5-5.1); SODIUM LEVEL 141 MMOL/L (136-145); TOTAL PROTEIN 7.5 G/DL (5.7-8.2); TRIGLYCERIDES LEVEL 171 MG/DL (<150)
[2023-07-07 16:32] LABS: FOLATE > 24.0 NG/ML (>5.4); VITAMIN B12 LEVEL 506 PG/ML (211-911)
== END ==
LOC: M LAB 14:09
PROVIDERS: ATTEND Nurse Practitioner Family
DX: D64.9 Anemia, unspecified (principal)

== ENCOUNTER → 2023-07-07 | Outpatient (CLI) | payer OTHER ==
[2023-07-07 15:55] LABS: HEMATOCRIT 39.4 % (36.0-47.0); HEMOGLOBIN 12.9 g/dl (12.0-15.5); MEAN CORPUSCULAR HEMOGLOBIN 31.3 pg (27.0-33.0); MEAN CORPUSCULAR HGB CONC 32.7 g/dl (32.0-36.5); MEAN CORPUSCULAR VOLUME 95.6 fl (80.0-96.0); PLATELET COUNT, AUTOMATED 268 10^3/uL (150-450); RED BLOOD COUNT 4.12 10^6/uL (4.00-5.40); WHITE BLOOD COUNT 6.1 10^3/uL (4.0-10.0)
[2023-07-07 16:18] LABS: ALBUMIN 3.6 G/DL (3.2-5.2); ALKALINE PHOSPHATASE 89 U/L (46-116); ALT/SGPT 18 U/L (7.0-40); AST/SGOT 18 U/L (<34); BILIRUBIN,TOTAL < 0.2 MG/DL (0.3-1.2); BLOOD UREA NITROGEN 12 MG/DL (9-23); CALCIUM LEVEL 9.2 MG/DL (8.5-10.1); CARBON DIOXIDE LEVEL 26 MMOL/L (20-31); CHLORIDE LEVEL 109 MMOL/L (98-107); CREATININE FOR GFR 0.54 MG/DL (0.55-1.30); GLOMERULAR FILTRATION RATE > 60.0 (>60); GLUCOSE, FASTING 63 MG/DL (60-100); POTASSIUM SERUM 4.3 MMOL/L (3.5-5.1); SODIUM LEVEL 140 MMOL/L (136-145); TOTAL PROTEIN 7.5 G/DL (5.7-8.2)
[2023-07-07 16:20] LABS: HCG, SERUM QUALITATIVE NEGATIVE (NEGATIVE)
[2023-07-07 16:26] LABS: HEPATITIS B SURFACE ANTIGEN NEGATIVE (NEGATIVE)
[2023-07-07 16:45] LABS: HIV 1&2 SCREEN NEGATIVE (NEGATIVE)
[2023-07-07 16:48] LABS: GC DNA AMPLIFICATION NEGATIVE (NEGATIVE)
[2023-07-07 16:56] LABS: HEPATITIS C VIRUS ABY INDEX > 11.00 INDEX (<0.8)
== END ==
LOC: M LAB 14:12
PROVIDERS: ATTEND Family Medicine
DX: F11.20 Opioid dependence, uncomplicated (principal)

== ENCOUNTER 2024-03-05 08:12 | Emergency (ER) | payer OTHER ==
[~2024-03-05] VITALS: Ht 149.9 cm; Wt 38.3 kg
[~2024-03-05 08:12] MED LIST changes: -SENN-111 PO; +SENN-165 PO
[2024-03-05] MEDS: KETOROLAC 30 MG/ML 1ML VIAL IM ONE (10:30)
[2024-03-05] MEDS ORDERED: META28.32 PO (11:25)
[2024-03-05] MEDS ORDERED: MIRA3350 PO (11:25)
[2024-03-05 11:30] VITALS: BP 129/75; TEMP 97.5; O2SAT 99
== END 2024-03-05 11:34 | disposition home or self-care (01) ==
LOC: M ED 08:12
DX: K62.3 Rectal prolapse (principal); K21.9 Gastro-esophageal reflux disease without esophagitis; F17.210 Nicotine dependence, cigarettes, uncomplicated; F15.10 Other stimulant abuse, uncomplicated; Z79.51 Long term (current) use of inhaled steroids; Z79.899 Other long term (current) drug therapy
CPT/HCPCS: 96372; 99283; J1885

== ENCOUNTER 2024-03-05 22:40 | Emergency (ER) | payer OTHER ==
[~2024-03-05] VITALS: Ht 149.9 cm; Wt 40.2 kg
[~2024-03-05 22:40] MED LIST changes: +META28.32 PO; +MIRA3350 PO
[2024-03-05 22:48] VITALS: TEMP 96.9
[2024-03-06 04:33] VITALS: BP 142/84; O2SAT 97
== END 2024-03-06 04:44 | disposition home or self-care (01) ==
LOC: M ED 22:40
DX: K62.3 Rectal prolapse (principal); F17.210 Nicotine dependence, cigarettes, uncomplicated; Z79.51 Long term (current) use of inhaled steroids; Z79.899 Other long term (current) drug therapy
CPT/HCPCS: 96372; 99283; 99284; J1885

== ENCOUNTER → 2025-01-06 | Outpatient (CLI) | payer OTHER ==
[~2025-01-06] MED LIST changes: +MM S100C PO; +SENN-186 PO
[2025-01-06 12:59] LABS: PLATELET COUNT, AUTOMATED 265 10^3/uL (150-450)
[2025-01-06 13:32] LABS: ALT/SGPT 22 U/L (7.0-40); AST/SGOT 27 U/L (<34); CALCIUM LEVEL 9.1 MG/DL (8.5-10.1); CARBON DIOXIDE LEVEL 26 MMOL/L (20-31); CHLORIDE LEVEL 108 MMOL/L (98-107); CREATININE FOR GFR 0.79 MG/DL (0.55-1.30); GLOMERULAR FILTRATION RATE > 90.0 (>60); POTASSIUM SERUM 4.4 MMOL/L (3.5-5.1); SODIUM LEVEL 141 MMOL/L (136-145)
[2025-01-06 13:43] LABS: HCG, SERUM QUALITATIVE NEGATIVE (NEGATIVE)
[2025-01-06 13:57] LABS: HIV 1&2 SCREEN NEGATIVE (NEGATIVE)
[2025-01-06 14:13] LABS: HEPATITIS C VIRUS ABY INDEX > 11.00 INDEX (<0.8)
[2025-01-07 12:58] LABS: GC DNA AMPLIFICATION NEGATIVE (NEGATIVE)
[2025-01-08 02:08] LABS: HCV RNA QUANTITATION <15 NOT DETECTED IU/mL (NOT DETECTED); HCV RNA log10 <1.18 NOT DETECTED Log IU/mL (NOT DETECTED)
== END ==
LOC: M LAB 11:31
PROVIDERS: ATTEND Family Medicine
DX: F11.20 Opioid dependence, uncomplicated (principal)

== ENCOUNTER → 2025-01-19 | Outpatient (CLI) | payer OTHER ==
[2025-01-19 15:46] LABS: BASO # 0.0 10^3/uL (0.0-0.2); BASO % 0.5 % (0.0-1.0); EOS # 0.1 10^3/uL (0.0-0.5); EOS % 2.0 % (0.0-3.0); LYMPH # 1.7 10^3/uL (1.5-5.0); LYMPH % 28.8 % (24.0-44.0); MONO # 0.5 10^3/uL (0.0-0.8); MONO % 8.0 % (2.0-8.0); NEUTROPHILS # 3.6 10^3/uL (1.5-8.5); NEUTROPHILS % 60.5 % (36.0-66.0); PLATELET COUNT, AUTOMATED 363 10^3/uL (150-450)
[2025-01-19 16:21] LABS: ALT/SGPT 16 U/L (7.0-40); AST/SGOT 25 U/L (<34); CALCIUM LEVEL 8.7 MG/DL (8.5-10.1); CARBON DIOXIDE LEVEL 27 MMOL/L (20-31); CHLORIDE LEVEL 109 MMOL/L (98-107); CREATININE FOR GFR 0.70 MG/DL (0.55-1.30); GLOMERULAR FILTRATION RATE > 90.0 (>60); IRON (FE) 14 UG/DL (50-170); MAGNESIUM LEVEL 1.8 MG/DL (1.8-2.4); PERCENT SATURATION 3.4 % (13.2-45.0); POTASSIUM SERUM 4.7 MMOL/L (3.5-5.1); SODIUM LEVEL 140 MMOL/L (136-145)
[2025-01-19 16:32] LABS: VITAMIN B12 LEVEL 302 PG/ML (211-911)
[2025-01-19 16:49] LABS: Trichomonas vaginalis (AMP) NOT DETECTED (NEGATIVE)
[2025-01-19 16:53] LABS: HIV 1&2 SCREEN NEGATIVE (NEGATIVE)
[2025-01-19 16:57] LABS: ESTIMATED AVERAGE GLUCOSE 94.0 MG/DL (60-110)
[2025-01-19 17:06] LABS: HEPATITIS C VIRUS ABY INDEX > 11.00 INDEX (<0.8)
[2025-01-19 17:12] LABS: GC DNA AMPLIFICATION NEGATIVE (NEGATIVE)
[2025-01-24 19:02] LABS: HCV RNA QUANTITATION <15 NOT DETECTED IU/mL (NOT DETECTED); HCV RNA log10 <1.18 NOT DETECTED Log IU/mL (NOT DETECTED)
== END ==
LOC: M LAB 14:40
PROVIDERS: ATTEND Nurse Practitioner Family
DX: D64.9 Anemia, unspecified (principal); E61.1 Iron deficiency; K59.00 Constipation, unspecified; Z79.891 Long term (current) use of opiate analgesic; Z13.29 Encounter for screening for other suspected endocrine disorder; Z11.9 Encounter for screening for infectious and parasitic diseases, unspecified

== ENCOUNTER → 2025-02-03 | Outpatient (REF) | payer OTHER | LOC: M LAB REF 16:41 | PROVIDERS: ATTEND Physician Assistant | DX: B34.9 Viral infection, unspecified (principal) ==